=== PATIENT | male | born 1980 | race African-American/Black ===

== ENCOUNTER 2019-08-08 11:31 | Emergency (ER) | payer OTHER ==
[~2019-08-08 11:31] MED LIST: NO HOME MEDS
[2019-08-08] MEDS ORDERED: BACTROBAN TOP (12:49)
[2019-08-08] MEDS ORDERED: BACTRIM DS1 TAB PO (12:49)
[2019-08-08 12:54] VITALS: BP 118/59
== END 2019-08-08 12:55 | disposition home or self-care (01) ==
LOC: ED 11:31
DX: S81.811A Laceration without foreign body, right lower leg, initial encounter (principal); W26.8XXA Contact with other sharp object(s), not elsewhere classified, initial encounter; Y93.89 Activity, other specified; Y92.002 Bathroom of unspecified non-institutional (private) residence as the place of occurrence of the external cause; Z88.0 Allergy status to penicillin

== ENCOUNTER 2021-03-10 16:33 | Emergency (ER) | payer OTHER ==
[~2021-03-10] VITALS: Ht 175.3 cm; Wt 68.0 kg
[~2021-03-10 16:33] MED LIST changes: +BACTRIM DS1 TAB PO; +BACTROBAN TOP
[2021-03-10] MEDS ORDERED: OMEPRAZOLE10 MG PO (18:31)
[2021-03-10] MEDS ORDERED: ZOFRAN4 MG/TAB PO (19:07)
[2021-03-10] MEDS ORDERED: ZPAK PO (19:07)
[2021-03-10 19:40] VITALS: BP 128/83
== END 2021-03-10 19:40 | disposition home or self-care (01) ==
LOC: ED 16:33
DX: U07.1 COVID-19 (principal); F17.200 Nicotine dependence, unspecified, uncomplicated